=== PATIENT | female | born 1960 | race Caucasian/White ===

== ENCOUNTER → 2017-05-30 | Outpatient (REF) | payer OTHER ==
[2017-05-30 11:59] LABS: PLATELET COUNT, AUTOMATED 231 10^3/uL (150-450); RED CELL DISTRIBUTION WIDTH 12.9 % (11.5-14.5); WHITE BLOOD COUNT 5.8 10^3/uL (4.0-10.0)
[2017-05-30 12:46] LABS: ALBUMIN/GLOBULIN RATIO 1.54 (1.00-1.93); ALKALINE PHOSPHATASE 65 U/L (45-117); ALT/SGPT 31 U/L (12-78); ANION GAP 8 MEQ/L (8-16); AST/SGOT 22 U/L (7-37); BILIRUBIN,TOTAL 1.8 MG/DL (0.2-1.0); BLOOD UREA NITROGEN 18 MG/DL (7-18); CALCIUM LEVEL 9.1 MG/DL (8.5-10.1); CARBON DIOXIDE LEVEL 29 MEQ/L (21-32); CHLORIDE LEVEL 107 MEQ/L (98-107); CHOLESTEROL LEVEL 149 MG/DL (<200); CREATININE FOR GFR 0.81 MG/DL (0.55-1.02); FREE T4 1.06 NG/DL (0.76-1.46); GLOMERULAR FILTRATION RATE > 60.0 (>51); GLUCOSE, FASTING 87 MG/DL (70-105); MAGNESIUM LEVEL 1.9 MG/DL (1.8-2.4); POTASSIUM SERUM 4.2 MEQ/L (3.5-5.1); SODIUM LEVEL 144 MEQ/L (136-145); TOTAL PROTEIN 6.6 GM/DL (6.4-8.2); TRIGLYCERIDES LEVEL 87 MG/DL (<150)
== END ==
LOC: M SFHCPLAZ 09:17
PROVIDERS: ATTEND Family Medicine
DX: Z02.9 Encounter for administrative examinations, unspecified (principal); I34.9 Nonrheumatic mitral valve disorder, unspecified; I47.1 Supraventricular tachycardia; E04.1 Nontoxic single thyroid nodule

== ENCOUNTER → 2017-07-10 | Outpatient (CLI) | payer OTHER | LOC: M RAD 13:02 | DX: E04.1 Nontoxic single thyroid nodule (principal) | CPT/HCPCS: 76536 ==

== ENCOUNTER → 2018-07-03 | Outpatient (REF) | payer OTHER ==
[2018-07-03 20:13] LABS: HEMATOCRIT 44.5 % (36.0-47.0); HEMOGLOBIN 14.5 g/dl (12.0-15.5); MEAN CORPUSCULAR HEMOGLOBIN 30.7 pg (27.0-33.0); MEAN CORPUSCULAR HGB CONC 32.6 g/dl (32.0-36.5); MEAN CORPUSCULAR VOLUME 94.1 fl (80.0-96.0); PLATELET COUNT, AUTOMATED 248 10^3/uL (150-450); RED BLOOD COUNT 4.73 10^6/uL (4.00-5.40); WHITE BLOOD COUNT 7.2 10^3/uL (4.0-10.0)
[2018-07-03 20:25] LABS: BILIRUBIN,TOTAL 1.3 MG/DL (0.2-1.0); CALCIUM LEVEL 9.3 MG/DL (8.5-10.1); CHOLESTEROL RISK RATIO 2.573 (<5); CREATININE FOR GFR 1.09 MG/DL (0.55-1.30); FREE T4 0.84 NG/DL (0.76-1.46); GLOMERULAR FILTRATION RATE 54.7 (>51); MAGNESIUM LEVEL 2.2 MG/DL (1.8-2.4); POTASSIUM SERUM 4.5 MEQ/L (3.5-5.1); THYROID STIMULATING HORMONE 3.11 uIU/ML (0.358-3.740); TOTAL PROTEIN 6.8 GM/DL (6.4-8.2)
== END ==
LOC: M SFHCADAM 16:19
PROVIDERS: ATTEND Family Medicine
DX: E04.1 Nontoxic single thyroid nodule (principal); I34.9 Nonrheumatic mitral valve disorder, unspecified; I47.1 Supraventricular tachycardia

== ENCOUNTER → 2019-06-27 | Outpatient (REF) | payer OTHER ==
[~2019-06-27] MED LIST: MAG-84TA PO; SOTA80TA32 PO
[2019-06-27 13:14] LABS: HEMATOCRIT 45.1 % (36.0-47.0); HEMOGLOBIN 13.7 g/dl (12.0-15.5); MEAN CORPUSCULAR HEMOGLOBIN 28.9 pg (27.0-33.0); MEAN CORPUSCULAR HGB CONC 30.4 g/dl (32.0-36.5); MEAN CORPUSCULAR VOLUME 95.1 fl (80.0-96.0); PLATELET COUNT, AUTOMATED 228 10^3/uL (150-450); RED BLOOD COUNT 4.74 10^6/uL (4.00-5.40); WHITE BLOOD COUNT 5.1 10^3/uL (4.0-10.0)
[2019-06-27 13:21] LABS: ALBUMIN 3.6 GM/DL (3.2-5.2); ALT/SGPT 27 U/L (12-78); BILIRUBIN,TOTAL 1.8 MG/DL (0.2-1.0); BLOOD UREA NITROGEN 19 MG/DL (7-18); CARBON DIOXIDE LEVEL 28 MEQ/L (21-32); CHLORIDE LEVEL 109 MEQ/L (98-107); CHOLESTEROL LEVEL 152 MG/DL (<200); CHOLESTEROL RISK RATIO 2.338 (<5); CREATININE FOR GFR 0.96 MG/DL (0.55-1.30); FREE T4 0.87 NG/DL (0.76-1.46); GLOMERULAR FILTRATION RATE > 60.0 (>45); GLUCOSE, FASTING 84 MG/DL (70-100); HDL CHOLESTEROL 65 MG/DL (>40); LDL CHOLESTEROL 74 MG/DL (<100); NON-HDL-C 87 MG/DL; POTASSIUM SERUM 4.9 MEQ/L (3.5-5.1); SODIUM LEVEL 142 MEQ/L (136-145); TRIGLYCERIDES LEVEL 65 MG/DL (<150)
== END ==
LOC: M SFHCADAM 07:42
PROVIDERS: ATTEND Physician Assistant
DX: M25.512 Pain in left shoulder (principal); E04.1 Nontoxic single thyroid nodule; I34.9 Nonrheumatic mitral valve disorder, unspecified; Z95.810 Presence of automatic (implantable) cardiac defibrillator; I47.1 Supraventricular tachycardia

== ENCOUNTER → 2019-06-27 | Outpatient (REF) | payer OTHER ==
--- NOTE | 2019-06-28 02:07 | REP ---
Clinical: Chest and shoulder pain. Technique: PA and lateral views of the chest. Comparison: 11/05/2010. Findings: Mediastinum and cardiac silhouette stable. Evidence of prior sternotomy and pacemaker again noted. Lung champagne are clear. No focal consolidation, effusion, or pneumothorax. Skeletal structures intact. Impression: Normal stable chest x-ray. Electronically Signed by García Aguilar MD 06/28/2019 01:58 A
== END ==
LOC: M ADAMS 07:53 → EDSTATUS 07-01 11:49
PROVIDERS: ATTEND Physician Assistant
DX: M25.512 Pain in left shoulder (principal)

== ENCOUNTER 2019-06-28 12:35 | Emergency (ER) | payer OTHER ==
[~2019-06-28] VITALS: Ht 172.7 cm; Wt 71.1 kg
[2019-06-28 12:35] VITALS: BP 137/74
[2019-06-28] MEDS ORDERED: NS 500 ML IV ONE (13:00)
[2019-06-28] MEDS ORDERED: ISOVUE-370 76% 100ML VIAL (Q9967) As Ordered ONE (13:14)
[2019-06-28] MEDS ORDERED: MAG-84TA PO (13:56)
[2019-06-28] MEDS ORDERED: SOTA80TA32 PO (13:56)
--- NOTE | 2019-06-28 14:18 | REP ---
CT PULMONARY ANGIOGRAM: With IV contrast. HISTORY: Left scapular pain. Positive D-dimer. Rule out pulmonary embolus. COMPARISON STUDIES: No comparison study. CONTRAST DOSE: 75 mL of Isovue [address] TECHNIQUE: Helical scanning is acquired and overlapping 1.5 mm and contiguous 3 mm axial images are reformatted. In addition, maximum intensity projection and multiplanar re-formation images are generated in sagittal and coronal imaging projections. CT PULMONARY ANGIOGRAPHIC FINDINGS: Preliminary digital equity analyst radiograph demonstrates a multiple pacemaker in the right heart. Prior sternotomy wires are noted. There is good opacification in the pulmonary arterial tree. There is no filling defect or vessel cutoff to suggest pulmonary embolus. Thoracic aorta enhances homogeneously and is normal in course and caliber. Pacemaker leads are visible in the right ventricle and in the coronary sinus. No pleural or pericardial effusion is seen. The lung champagne are clear. No hilar or mediastinal mass or adenopathy is observed. No adrenal lesion is seen. Visualized upper abdominal structures are unremarkable. IMPRESSION: Cardiomegaly and prior sternotomy with a multilead pacemaker. No CT evidence of pulmonary embolus. No acute abnormality. Electronically Signed by Froy Berg MD 06/29/2019 05:18 A
== END 2019-06-28 13:59 | disposition home or self-care (01) ==
LOC: M ED 12:35
DX: M25.512 Pain in left shoulder (principal); I48.91 Unspecified atrial fibrillation; Z95.0 Presence of cardiac pacemaker; Z79.899 Other long term (current) drug therapy; Z88.1 Allergy status to other antibiotic agents; Z88.2 Allergy status to sulfonamides
CPT/HCPCS: 71275; 99284; Q9967

== ENCOUNTER → 2020-08-26 | Outpatient (CLI) | payer OTHER ==
--- NOTE | 2020-08-26 11:38 | REP ---
INDICATION: BREAKDOWN (MECHANICAL) OF CARDIAC ELECTRODE, INIT ENCNTR COMPARISON: 11/05/2010. TECHNIQUE: PA/Lateral FINDINGS: Lungs: Clear, no infiltrate. Heart: Normal in size. Mediastinum: Mediastinal silhouette unremarkable. Pleural angles: Unremarkable.. Bones and soft tissues: Unremarkable. The automatic internal cardiac defibrillator device is again noted with a single contiguous lead traversing across the left hemithorax into the region of the right ventricle, unchanged since the prior exam. Once again there are old leads present as seen on the prior study. A more lateral lead overlying the upper left hemithorax is unchanged. The more central lead demonstrates a new break superiorly, with a new nondisplaced wire fragment present measuring 3.8 cm in length. Sternotomy wires are noted. IMPRESSION: No acute pulmonary disease. No significant change compared to the prior study except for a new break in 1 of the old defibrillator leads in the region of the superior left hemithorax as discussed above. <Electronically signed by Cole Dexter > 08/26/20 [id number]
== END ==
LOC: M RAD 11:13
PROVIDERS: ATTEND Internal Medicine Cardiovascular Disease
DX: T82.110A Breakdown (mechanical) of cardiac electrode, initial encounter (principal)

== ENCOUNTER → 2020-11-03 | Outpatient (CLI) | payer OTHER ==
--- NOTE | 2020-11-03 11:16 | REP ---
INDICATION: LOCALIZED EDEMA- LABS FIRST. COMPARISON: None. TECHNIQUE: Multiple ultrasonographic images of the deep venous structures of the bilateral thigh were obtained from the common femoral vein to the popliteal vein along with Doppler interrogation and color flow Doppler images. FINDINGS: There is no abnormal echogenic material seen within any of the visualized deep venous structures that would suggest acute thrombosis. Coaptation is unremarkable throughout. Doppler interrogation shows an expected response to respiratory variability and augmentation. The color flow images show what appears to be a normal vascular pattern throughout. IMPRESSION: There is no ultrasonographic evidence of deep venous thrombosis involving any of the visualized deep venous structures of the bilateral thigh, as described above. <Electronically signed by Caden Prince > 11/03/20 [id number]
[2020-11-03 12:05] LABS: HEMATOCRIT 39.9 % (36.0-47.0); HEMOGLOBIN 12.2 g/dl (12.0-15.5); MEAN CORPUSCULAR HEMOGLOBIN 29.5 pg (27.0-33.0); MEAN CORPUSCULAR HGB CONC 30.6 g/dl (32.0-36.5); MEAN CORPUSCULAR VOLUME 96.6 fl (80.0-96.0); PLATELET COUNT, AUTOMATED 281 10^3/uL (150-450); RED BLOOD COUNT 4.13 10^6/uL (4.00-5.40); WHITE BLOOD COUNT 7.2 10^3/uL (4.0-10.0)
[2020-11-03 12:33] LABS: BLOOD UREA NITROGEN 14 MG/DL (7-18); CALCIUM LEVEL 9.1 MG/DL (8.8-10.2); CARBON DIOXIDE LEVEL 28 MEQ/L (21-32); CHLORIDE LEVEL 109 MEQ/L (98-107); CREATININE FOR GFR 0.79 MG/DL (0.55-1.30); GLOMERULAR FILTRATION RATE > 60.0 (>45); GLUCOSE, FASTING 91 MG/DL (70-100); NT-PRO BNP 810 PG/ML (<125); POTASSIUM SERUM 4.7 MEQ/L (3.5-5.1); SODIUM LEVEL 141 MEQ/L (136-145)
--- NOTE | 2020-11-03 12:49 | REP ---
INDICATION: SHORTNESS OF BREATH- LABS AND U/S FIRST COMPARISON: None. TECHNIQUE: PA/Lateral FINDINGS: Lungs: Clear, no infiltrate. Heart: Normal in size. Mediastinum: Mediastinal silhouette unremarkable. Pleural angles: Unremarkable.. Bones and soft tissues: Unremarkable. The automatic internal cardiac defibrillator device has been replaced, with old leads removed since the prior study. A new lead is contiguous with no discontinuity. Tip is in the region of the right ventricle. Multiple sternal wires and prosthetic heart valve are again noted. IMPRESSION: No acute pulmonary disease. Automatic internal cardiac defibrillator device and prior discontiguous leads have been removed and replaced. <Electronically signed by Cole Dexter > 11/03/20 [id number]
== END ==
LOC: M RAD 10:18
PROVIDERS: ATTEND Physician Assistant
DX: R60.0 Localized edema (principal); R06.02 Shortness of breath; Z95.810 Presence of automatic (implantable) cardiac defibrillator; Z95.2 Presence of prosthetic heart valve

== ENCOUNTER → 2020-11-03 | Outpatient (CLI) | payer OTHER ==
[2020-11-03 12:04] LABS: HEMOGLOBIN 12.3 g/dl (12.0-15.5); MEAN CORPUSCULAR HEMOGLOBIN 29.6 pg (27.0-33.0); MEAN CORPUSCULAR HGB CONC 30.8 g/dl (32.0-36.5); MEAN CORPUSCULAR VOLUME 96.4 fl (80.0-96.0); PLATELET COUNT, AUTOMATED 281 10^3/uL (150-450); RED BLOOD COUNT 4.15 10^6/uL (4.00-5.40); WHITE BLOOD COUNT 7.1 10^3/uL (4.0-10.0)
[2020-11-03 12:53] LABS: ALBUMIN 3.7 GM/DL (3.2-5.2); ALT/SGPT 90 U/L (12-78); BILIRUBIN,TOTAL 1.6 MG/DL (0.2-1.0); BLOOD UREA NITROGEN 14 MG/DL (7-18); CALCIUM LEVEL 8.4 MG/DL (8.8-10.2); CARBON DIOXIDE LEVEL 25 MEQ/L (21-32); CHLORIDE LEVEL 107 MEQ/L (98-107); CHOLESTEROL LEVEL 123 MG/DL (<200); CHOLESTEROL RISK RATIO 2.016 (<5); CREATININE FOR GFR 0.73 MG/DL (0.55-1.30); FREE T4 0.96 NG/DL (0.76-1.46); GLOMERULAR FILTRATION RATE > 60.0 (>45); GLUCOSE, FASTING 82 MG/DL (70-100); HDL CHOLESTEROL 61 MG/DL (>40); LDL CHOLESTEROL 46 MG/DL (<100); MAGNESIUM LEVEL 1.8 MG/DL (1.8-2.4); NON-HDL-C 62 MG/DL; POTASSIUM SERUM 4.6 MEQ/L (3.5-5.1); SODIUM LEVEL 140 MEQ/L (136-145); TOTAL PROTEIN 6.6 GM/DL (6.4-8.2); TRIGLYCERIDES LEVEL 78 MG/DL (<150)
== END ==
LOC: M LAB 10:21
PROVIDERS: ATTEND Family Medicine
DX: E04.1 Nontoxic single thyroid nodule (principal); G43.909 Migraine, unspecified, not intractable, without status migrainosus; I34.9 Nonrheumatic mitral valve disorder, unspecified; I47.1 Supraventricular tachycardia; E78.5 Hyperlipidemia, unspecified

== ENCOUNTER → 2020-11-13 | Outpatient (CLI) | payer OTHER ==
[2020-11-13 12:37] LABS: BLOOD UREA NITROGEN 18 MG/DL (7-18); CALCIUM LEVEL 9.2 MG/DL (8.8-10.2); CARBON DIOXIDE LEVEL 29 MEQ/L (21-32); CHLORIDE LEVEL 108 MEQ/L (98-107); CREATININE FOR GFR 0.94 MG/DL (0.55-1.30); GLOMERULAR FILTRATION RATE > 60.0 (>45); GLUCOSE, FASTING 102 MG/DL (70-100); MAGNESIUM LEVEL 2.2 MG/DL (1.8-2.4); NT-PRO BNP 695 PG/ML (<125); POTASSIUM SERUM 4.3 MEQ/L (3.5-5.1); SODIUM LEVEL 142 MEQ/L (136-145)
== END ==
LOC: M WUC 09:22
PROVIDERS: ATTEND Physician Assistant
DX: I50.9 Heart failure, unspecified (principal)

== ENCOUNTER → 2021-01-20 | Outpatient (CLI) | payer OTHER ==
[2021-01-20 11:39] LABS: BLOOD UREA NITROGEN 26 MG/DL (7-18); CALCIUM LEVEL 9.7 MG/DL (8.8-10.2); CARBON DIOXIDE LEVEL 29 MEQ/L (21-32); CHLORIDE LEVEL 105 MEQ/L (98-107); CREATININE FOR GFR 0.96 MG/DL (0.55-1.30); GLOMERULAR FILTRATION RATE > 60.0 (>45); GLUCOSE, FASTING 96 MG/DL (70-100); NT-PRO BNP 506 PG/ML (<125); POTASSIUM SERUM 4.6 MEQ/L (3.5-5.1); SODIUM LEVEL 140 MEQ/L (136-145)
== END ==
LOC: M LAB 08:18
PROVIDERS: ATTEND Physician Assistant
DX: I50.9 Heart failure, unspecified (principal)

== ENCOUNTER → 2021-01-21 | Outpatient (CLI) | payer OTHER ==
--- NOTE | 2021-01-21 17:18 | REP ---
INDICATION: NONTOXIC SINGLE THYROID NODULE. COMPARISON: The most recent prior study dated 07/10/2017. TECHNIQUE: Multiple ultrasonographic images of the thyroid. FINDINGS: The right thyroid lobe measures 4.2 x 1.3 x 1.6 cm and is normal size. The left thyroid lobe measures 4.2 x 1.3 x 1.5 cm and is normal size. The isthmus measures 2 mm thickness and is normal size. These measurements are not significantly changed from the prior study. There is a single nodule in the right thyroid lobe posteriorly in the lower pole today measuring 9 mm. This measured up to 7 mm previously. There is a single nodule in the left thyroid lobe in the upper pole today measuring 3 mm. This measured 2.6 mm previously. The remainder of the thyroid parenchyma is homogeneous bilaterally. IMPRESSION: There is a single nodule in the thyroid right lobe and a single nodule in the thyroid left lobe, not significantly changed from the comparison study. <Electronically signed by Cole Anders > 01/21/21 [id number]
== END ==
LOC: M RAD 01-20 08:14
PROVIDERS: ATTEND Family Medicine
DX: E04.1 Nontoxic single thyroid nodule (principal)

== ENCOUNTER 2021-02-22 08:28 | Emergency (ER) | payer OTHER ==
[~2021-02-22] VITALS: Ht 172.7 cm; Wt 68.2 kg
[2021-02-22] MEDS ORDERED: ESTR1DIS3 (08:57)
[2021-02-22] MEDS ORDERED: FURO20TA2 (08:57)
[2021-02-22 09:25] LABS: BASO # 0.1 10^3/uL (0.0-0.2); BASO % 0.6 % (0.0-1.0); EOS # 0.4 10^3/uL (0.0-0.5); EOS % 3.6 % (0.0-3.0); HEMATOCRIT 48.8 % (36.0-47.0); HEMOGLOBIN 15.1 g/dl (12.0-15.5); LYMPH # 1.3 10^3/uL (1.5-5.0); LYMPH % 13.6 % (24.0-44.0); MEAN CORPUSCULAR HEMOGLOBIN 27.5 pg (27.0-33.0); MEAN CORPUSCULAR HGB CONC 30.9 g/dl (32.0-36.5); MEAN CORPUSCULAR VOLUME 88.9 fl (80.0-96.0); MONO % 9.7 % (2.0-8.0); NEUTROPHILS # 7.1 10^3/uL (1.5-8.5); PLATELET COUNT, AUTOMATED 334 10^3/uL (150-450); RED BLOOD COUNT 5.49 10^6/uL (4.00-5.40); WHITE BLOOD COUNT 9.9 10^3/uL (4.0-10.0)
[2021-02-22 09:55] LABS: ALBUMIN 3.5 GM/DL (3.2-5.2); ALT/SGPT 33 U/L (12-78); BILIRUBIN,DIRECT 0.3 MG/DL (0.0-0.2); BILIRUBIN,TOTAL 1.7 MG/DL (0.2-1.0); BLOOD UREA NITROGEN 17 MG/DL (7-18); CALCIUM LEVEL 9.4 MG/DL (8.8-10.2); CARBON DIOXIDE LEVEL 31 MEQ/L (21-32); CHLORIDE LEVEL 108 MEQ/L (98-107); CK-MB VALUE MASS 1.1 NG/ML (<3.6); CPK CREATINE PHOSPHOKINASE 66 U/L (26-192); CREATININE FOR GFR 0.94 MG/DL (0.55-1.30); FREE T4 0.92 NG/DL (0.76-1.46); GLOMERULAR FILTRATION RATE > 60.0 (>45); GLUCOSE, FASTING 102 MG/DL (70-100); LIPASE 120 U/L (73-393); MAGNESIUM LEVEL 2.3 MG/DL (1.8-2.4); MB/CK RELATIVE INDEX 1.67 (< OR =4); NT-PRO BNP 3606 PG/ML (<125); POTASSIUM SERUM 4.6 MEQ/L (3.5-5.1); SODIUM LEVEL 142 MEQ/L (136-145); TOTAL PROTEIN 6.9 GM/DL (6.4-8.2); TROPONIN I < 0.02 NG/ML (< 0.10)
--- NOTE | 2021-02-22 10:06 | REP ---
INDICATION: CHEST PAIN. COMPARISON: PA and lateral chest, 11/03/2020. TECHNIQUE: Upright AP portable chest image was obtained. FINDINGS: The lungs are clear. There is no lobar consolidation or pleural effusion. There is cardiomegaly. There is a mitral valve prosthesis. There is a defibrillator cardioverter wire with a device in the anterior abdominal wall. The upper abdominal bowel gas pattern is normal. Status post median sternotomy. IMPRESSION: 1. Cardiomegaly. Status post mitral valve replacement and defibrillator cardioverter placement. 2. The lungs are clear. There is no evidence of acute cardiopulmonary pathology. 3. No significant change. <Electronically signed by Chin Reed > 02/22/21 1002
[2021-02-22 10:45] VITALS: BP 132/86
[2021-02-22] MEDS ORDERED: METO1TAB87 PO (10:59)
[2021-02-22] MEDS ORDERED: ELIQ5TAB PO ×2 (10:59→11:01)
--- NOTE | 2021-02-22 11:41 | CR ---
CONSULTATION DATE: 02/22/2021 REFERRING PHYSICIAN: Treva Dobbs M.D. INDICATION: Atrial flutter. HISTORY OF PRESENT ILLNESS: Mrs. Holloway is a 61-year-old patient of Dr. 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 She received a defibrillator that over the years has been several times replaced. She was basically doing well on chronic sotalol without any recurrence of arrhythmias in many years. Approximately a week ago she received a second dose of COVID vaccine that was complicated by fever, chills, abdominal discomfort and nausea. She initially believed this was the main reason why she was not feeling well but in the last couple of days she noted that her heart rate is around 100 beats per minute which is decidedly unusual for her, her typical heart rate is around 60 BPM. Together with overall fatigue and just malaise she decided to come to the Emergency Room for evaluation. While in the Emergency Room, her vital signs revealed a heart rate around 100 beats per minute that has been remarkably steady and the EKG revealed the presence of most likely atypical flutter with 2:1 conduction and narrow QRS complex. Dr. Damon has asked me to see the patient. Patient tells me that she feels relatively well but because her symptoms were present for at least a week she wanted to be evaluated. Besides the recent vaccination, there have not been any recent unusual events. She did have a surgical removal of her original ICD leads in September [address] [facility] in [place]. The procedure was difficult for her and complicated with fairly prolonged recovery. She was told that she was left with approximately moderate tricuspid insufficiency which could be related to the position of the current RV lead and has been taking diuretics since the procedure was performed. With this regimen, she was only mildly symptomatic and this current decompensation over the last 10 days or so is new for her. PAST MEDICAL HISTORY: 1. Cardiomyopathy as above. She had over the years several additional procedures; she reports at least two or three ablations, several ICD generator replacements. She also has a history of mitral valve repair. To the best of her understanding, her current left ventricular ejection fraction is normal. She just had an echocardiogram less than two months ago with [facility]. 2. Thyroid nodule. PAST SURGICAL HISTORY: Positive for cardiac mitral valve repair, recent thoracotomy for extraction of the old ICD leads and subsequent ICD implant. OUTPATIENT MEDICATIONS: 1. Estradiol patch. 2. Furosemide 20 mg daily. 3. Magnesium Lactate 84 mg daily. 4. Sotalol 80 mg twice a day. 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 She does not smoke. Minimal alcohol use. FAMILY HISTORY: No first degree relatives with sudden cardiac or cardiomyopathy. REVIEW OF SYSTEMS: She denies any recent ish fever or chills. She did have these symptoms approximately a week ago. She still has some indigestion type of symptoms. She has no sensation of palpitations. She has no dizziness, near/syncope, she has mild exertional dyspnea approximately [place] [employer] Class II. No chest pain. No syncope or near syncope. No ICD discharges. The rest as per HPI or otherwise negative. PHYSICAL EXAMINATION: GENERAL: Mrs. Holloway is a pleasant 61-year-old female who appears younger than her calendar age. She is alert, oriented and appropriate. VITAL SIGNS: Blood pressure 132/86, heart rate 102 beats per minute, saturation 99% on room air. Weight was recorded as 68 kg. NECK: Her JVP is not elevated. LUNGS: Clear bilaterally with good air movement. HEART: Regular tachycardia. I do not appreciate any obvious murmur or gallop. ABDOMEN: Soft, recent ICD in the upper abdomen. EXTREMITIES: Free of edema. Good peripheral pulses. NEUROLOGIC: She is intact. Chest x-ray reveals no obvious infiltrate or evidence for congestive heart failure. The heart is enlarged. There is a defibrillator in the epigastric area and appropriate single lead. LABORATORY DATA: Sodium is 142, potassium is 4.6, BUN 17, creatinine 0.9, glucose is 102, bilirubin 1.7, magnesium 2.3, normal liver function tests. Normal cardiac enzymes. N-terminal pro-BNP is 3600. Albumin 3.5. Lipase 120. TSH 4.4. CBC: Hemoglobin 15.1, hematocrit 48.8, platelet count 334,000. ASSESSMENT AND PLAN: Mrs. 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 She also had subsequent mitral valve repair and numerous defibrillator generator replacements and mostly recently in September 2020 surgical extractions of defibrillator lead and placement of the new lead. Currently, she presents with approximately 10 days of symptoms and noticing tachycardia in the last 48 hours even though it may have been present longer. I interrogated her ICD. Unfortunately, she has only single lead ICD and consequently no information about the arrhythmia is gained. The device does not register her being in abnormal rhythm. Consequently, we have to assume that it has been present longer than just the last 24 to 48 hours. She is relatively stable even though she is in 2:1 conduction, she is not overly tachycardic but it is sufficient that the loss of AV synchrony and tachycardia makes her feel worse than her baseline. There are numerous options in this setting. I would suggest that the ultimate decision about management is left to Dr. Haro who has known her for over 30 years and he will be available tomorrow. In the interim, my recommendation is to start anticoagulation and I would add a small dose of beta heidy to her Sotalol, for example metoprolol 25 mg twice a day. I offered her hospitalization but she is reluctant to stay, would prefer to go home which I think is acceptable. In the long horizon, she needs to be cardioverted through externally or by the defibrillator or by overdrive pacing. This needs to be done after BEN or possibly electively after a few weeks of anticoagulation. PHILIP
--- NOTE | 2021-02-22 16:56 | ECGEPIP ---
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
== END 2021-02-22 11:20 | disposition home or self-care (01) ==
LOC: M ED 08:28
DX: I48.92 Unspecified atrial flutter (principal); I25.10 Atherosclerotic heart disease of native coronary artery without angina pectoris; I42.9 Cardiomyopathy, unspecified; E07.9 Disorder of thyroid, unspecified; Z88.1 Allergy status to other antibiotic agents; Z88.2 Allergy status to sulfonamides; Z79.899 Other long term (current) drug therapy; Z79.01 Long term (current) use of anticoagulants

== ENCOUNTER → 2021-04-30 | Outpatient (CLI) | payer BC ==
[~2021-04-30] MED LIST changes: +ELIQ5TAB PO; +ESTR1DIS3; +FURO20TA2; +METO1TAB87 PO
--- NOTE | 2021-04-30 10:46 | REP ---
INDICATION: DORSALGIA. COMPARISON: 02/22/2021 TECHNIQUE: PA and lateral FINDINGS: The cardiomediastinal silhouette is unchanged. Note is again made of previous median sternotomy. The pacemaker lead is unchanged. Mild left basilar opacities have developed since the last exam. There is minimal left CP angle blunting also representing a change. Lung champagne are otherwise clear and stable. There is no change in the osseous structures. IMPRESSION: New mild left basilar opacities and CP angle blunting. Subsegmental atelectasis versus possible early pneumonia. This should be correlated clinically with appropriate follow-up. <Electronically signed by Caden Prince > 04/30/21 [id number]
--- NOTE | 2021-04-30 10:48 | REP ---
INDICATION: DORSALGIA. COMPARISON: None. TECHNIQUE: AP and lateral views FINDINGS: There is scattered bilateral marginal osteophytosis. Vertebral body height and alignment is within normal limits. There is mild anterior lipping at every level. The disc spaces appear well maintained. The pedicles are intact bilaterally. IMPRESSION: Chronic changes as described above. <Electronically signed by Caden Prince > 04/30/21 [id number]
== END ==
LOC: M WUC 09:53
PROVIDERS: ATTEND Nurse Practitioner Family
DX: M54.9 Dorsalgia, unspecified (principal); M25.78 Osteophyte, vertebrae

== ENCOUNTER → 2021-04-30 | Outpatient (CLI) | payer BC ==
[2021-04-30 11:36] LABS: HEMATOCRIT 47.6 % (36.0-47.0); MEAN CORPUSCULAR HEMOGLOBIN 29.2 pg (27.0-33.0); MEAN CORPUSCULAR HGB CONC 31.5 g/dl (32.0-36.5); MEAN CORPUSCULAR VOLUME 92.8 fl (80.0-96.0); PLATELET COUNT, AUTOMATED 303 10^3/uL (150-450); RED BLOOD COUNT 5.13 10^6/uL (4.00-5.40)
[2021-04-30 12:14] LABS: BLOOD UREA NITROGEN 19 MG/DL (7-18); CALCIUM LEVEL 9.6 MG/DL (8.8-10.2); CARBON DIOXIDE LEVEL 30 MEQ/L (21-32); CHLORIDE LEVEL 105 MEQ/L (98-107); CREATININE FOR GFR 0.95 MG/DL (0.55-1.30); GLOMERULAR FILTRATION RATE > 60.0 (>45); GLUCOSE, FASTING 97 MG/DL (70-100); MAGNESIUM LEVEL 2.2 MG/DL (1.8-2.4); POTASSIUM SERUM 4.4 MEQ/L (3.5-5.1); SODIUM LEVEL 141 MEQ/L (136-145)
== END ==
LOC: M WUC 09:56
PROVIDERS: ATTEND Physician Assistant
DX: I48.3 Typical atrial flutter (principal)

== ENCOUNTER → 2021-06-18 | Outpatient (REF) | LOC: M LABSMTC 11:38 | PROVIDERS: ATTEND Family Medicine | DX: Z11.52 Encounter for screening for COVID-19 (principal); Z20.822 Contact with and (suspected) exposure to COVID-19 ==

== ENCOUNTER → 2021-12-06 | Outpatient (CLI) | payer BC ==
[2021-12-06 10:55] LABS: BLOOD UREA NITROGEN 21 MG/DL (7-18); CALCIUM LEVEL 9.5 MG/DL (8.8-10.2); CARBON DIOXIDE LEVEL 31 MEQ/L (21-32); CHLORIDE LEVEL 105 MEQ/L (98-107); CREATININE FOR GFR 0.93 MG/DL (0.55-1.30); GLOMERULAR FILTRATION RATE > 60.0 (>45); GLUCOSE, FASTING 83 MG/DL (70-100); MAGNESIUM LEVEL 2.3 MG/DL (1.8-2.4); NT-PRO BNP 372 PG/ML (<125); POTASSIUM SERUM 4.4 MEQ/L (3.5-5.1); SODIUM LEVEL 141 MEQ/L (136-145)
== END ==
LOC: M LAB 09:39
PROVIDERS: ATTEND Physician Assistant
DX: I50.32 Chronic diastolic (congestive) heart failure (principal); I48.3 Typical atrial flutter; I49.01 Ventricular fibrillation

== ENCOUNTER → 2022-05-26 | Outpatient (REF) ==
[2022-05-26 11:24] LABS: RSV AMPLIFICATION NEGATIVE (NEGATIVE)
== END ==
LOC: M LABSMTC 10:27
PROVIDERS: ATTEND Family Medicine
DX: Z20.822 Contact with and (suspected) exposure to COVID-19 (principal)

== ENCOUNTER → 2022-11-24 | Outpatient (REF) | payer BC | LOC: M SFHCADAM 09:07 | PROVIDERS: ATTEND Family Medicine | DX: I34.9 Nonrheumatic mitral valve disorder, unspecified (principal); G43.909 Migraine, unspecified, not intractable, without status migrainosus; I47.1 Supraventricular tachycardia; E04.1 Nontoxic single thyroid nodule; E78.5 Hyperlipidemia, unspecified; R53.83 Other fatigue ==

== ENCOUNTER → 2022-11-29 | Outpatient (CLI) | payer BC ==
[2022-11-29 14:56] LABS: HEMATOCRIT 45.9 % (36.0-47.0); HEMOGLOBIN 14.4 g/dl (12.0-15.5); MEAN CORPUSCULAR HEMOGLOBIN 29.9 pg (27.0-33.0); MEAN CORPUSCULAR HGB CONC 31.4 g/dl (32.0-36.5); MEAN CORPUSCULAR VOLUME 95.4 fl (80.0-96.0); PLATELET COUNT, AUTOMATED 217 10^3/uL (150-450); RED BLOOD COUNT 4.81 10^6/uL (4.00-5.40)
[2022-11-29 15:38] LABS: ALBUMIN 3.9 G/DL (3.2-5.2); ALKALINE PHOSPHATASE 78 U/L (46-116); ALT/SGPT 34 U/L (7.0-40); AST/SGOT 27 U/L (<34); BILIRUBIN,TOTAL 2.5 MG/DL (0.3-1.2); BLOOD UREA NITROGEN 25 MG/DL (9-23); CALCIUM LEVEL 9.6 MG/DL (8.3-10.6); CARBON DIOXIDE LEVEL 29 MMOL/L (20-31); CHLORIDE LEVEL 106 MMOL/L (98-107); CHOLESTEROL LEVEL 131 MG/DL (<200); CHOLESTEROL RISK RATIO 2.22 (<5); CREATININE FOR GFR 0.93 MG/DL (0.55-1.30); FREE T4 1.02 NG/DL (0.89-1.76); GLOMERULAR FILTRATION RATE > 60.0 (>45); GLUCOSE, FASTING 80 MG/DL (74-106); HDL CHOLESTEROL 58.9 MG/DL (>40); LDL CHOLESTEROL 56.1 MG/DL (<100); MAGNESIUM LEVEL 1.9 MG/DL (1.8-2.4); NON-HDL-C 72.1 MG/DL; POTASSIUM SERUM 4.2 MMOL/L (3.5-5.1); SODIUM LEVEL 142 MMOL/L (136-145); THYROID STIMULATING HORMONE 3.893 uIU/ML (0.55-4.78); TOTAL PROTEIN 6.4 G/DL (5.7-8.2); TRIGLYCERIDES LEVEL 80 MG/DL (<150)
[2022-11-29 15:55] LABS: HEMOGLOBIN A1c 5.5 % (4.0-6.0)
== END ==
LOC: M LAB 13:57
PROVIDERS: ATTEND Family Medicine
DX: I34.9 Nonrheumatic mitral valve disorder, unspecified (principal); G43.909 Migraine, unspecified, not intractable, without status migrainosus; I47.1 Supraventricular tachycardia; E04.1 Nontoxic single thyroid nodule; E78.5 Hyperlipidemia, unspecified; R53.83 Other fatigue

== ENCOUNTER 2023-02-11 18:58 | Emergency (ER) | payer BC, SELFPAY ==
[~2023-02-11] VITALS: Ht 172.7 cm; Wt 72.9 kg
[2023-02-11] MEDS ORDERED: LIDOCAINE W/EPINEPHRINE 1% 20ML VIAL SC ONE (19:25)
[2023-02-11] MEDS ORDERED: BOOSTRIX VACCINE (TETANUS/DIPHTH/ACEL. PERTUSSIS) 0.5ML SYR IM ONE (19:25)
[2023-02-11] MEDS ORDERED: LIDOCAINE 1% MDV 20ML VIAL SC ONE (19:40)
[2023-02-11 20:34] VITALS: BP 164/68; TEMP 96.1; O2SAT 98
== END 2023-02-11 20:35 | disposition home or self-care (01) ==
LOC: M ED 18:58
DX: S61.412A Laceration without foreign body of left hand, initial encounter (principal); W26.8XXA Contact with other sharp object(s), not elsewhere classified, initial encounter; Y92.009 Unspecified place in unspecified non-institutional (private) residence as the place of occurrence of the external cause; Y93.89 Activity, other specified; Y99.8 Other external cause status; I50.20 Unspecified systolic (congestive) heart failure; Z88.2 Allergy status to sulfonamides; Z79.01 Long term (current) use of anticoagulants; Z79.899 Other long term (current) drug therapy; Z95.0 Presence of cardiac pacemaker

== ENCOUNTER → 2023-04-13 | Outpatient (CLI) | payer BC | LOC: M SLEEP HO 10:48 | PROVIDERS: ATTEND Physician Assistant | DX: I27.29 Other secondary pulmonary hypertension (principal); R06.83 Snoring ==

== ENCOUNTER → 2023-08-16 | Outpatient (CLI) | payer BC ==
[2023-08-16 11:23] LABS: FREE T4 0.9 NG/DL (0.89-1.76); THYROID STIMULATING HORMONE 6.213 uIU/ML (0.55-4.78)
== END ==
LOC: M LAB 10:21
PROVIDERS: ATTEND Nurse Practitioner Adult Health
DX: I07.1 Rheumatic tricuspid insufficiency (principal)

== ENCOUNTER → 2023-08-25 | Outpatient (CLI) | payer BC ==
[2023-08-25 11:15] LABS: HEMATOCRIT 47.1 % (36.0-47.0); HEMOGLOBIN 15.1 g/dl (12.0-15.5); MEAN CORPUSCULAR HEMOGLOBIN 30.1 pg (27.0-33.0); MEAN CORPUSCULAR HGB CONC 32.1 g/dl (32.0-36.5); MEAN CORPUSCULAR VOLUME 93.8 fl (80.0-96.0); PLATELET COUNT, AUTOMATED 242 10^3/uL (150-450); RED BLOOD COUNT 5.02 10^6/uL (4.00-5.40); WHITE BLOOD COUNT 7.8 10^3/uL (4.0-10.0)
[2023-08-25 11:28] LABS: INR 1.2; PARTIAL THROMBOPLASTIN TIME 25.8 SECONDS (24.8-34.2); PROTHROMBIN TIME 14.9 SECONDS (12.5-14.5)
[2023-08-25 11:44] LABS: CALCIUM LEVEL 9.3 MG/DL (8.3-10.6); CREATININE FOR GFR 1.03 MG/DL (0.55-1.30); GLOMERULAR FILTRATION RATE 57.4 (>45); POTASSIUM SERUM 4.5 MMOL/L (3.5-5.1)
== END ==
LOC: M LAB 10:42
PROVIDERS: ATTEND Physician Assistant
DX: I36.1 Nonrheumatic tricuspid (valve) insufficiency (principal)

== ENCOUNTER → 2024-04-17 | Outpatient (CLI) | payer MEDICARE ==
[2024-04-17 16:33] LABS: ALBUMIN 3.7 G/DL (3.2-5.2); ALKALINE PHOSPHATASE 76 U/L (35-104); ALT/SGPT 19 U/L (7.0-40); AST/SGOT 19 U/L (<34); BILIRUBIN,DIRECT 0.7 MG/DL (<0.4); BILIRUBIN,TOTAL 2.1 MG/DL (0.3-1.2); BLOOD UREA NITROGEN 21 MG/DL (9-23); CALCIUM LEVEL 9.9 MG/DL (8.3-10.6); CARBON DIOXIDE LEVEL 32 MMOL/L (20-31); CHLORIDE LEVEL 110 MMOL/L (98-107); CREATININE FOR GFR 0.96 MG/DL (0.55-1.30); GLOMERULAR FILTRATION RATE > 60.0 (>45); GLUCOSE, FASTING 90 MG/DL (74-106); INR 1.12; PARTIAL THROMBOPLASTIN TIME 28.9 SECONDS (24.8-34.2); POTASSIUM SERUM 4.3 MMOL/L (3.5-5.1); PROTHROMBIN TIME 14.7 SECONDS (12.5-14.5); SODIUM LEVEL 143 MMOL/L (136-145); TOTAL PROTEIN 6.4 G/DL (5.7-8.2)
[2024-04-17 16:43] LABS: BASO % 0.6 % (0.0-1.0); EOS # 0.1 10^3/uL (0.0-0.5); EOS % 1.5 % (0.0-3.0); HEMATOCRIT 44.9 % (36.0-47.0); HEMOGLOBIN 13.9 g/dl (12.0-15.5); LYMPH # 1.1 10^3/uL (1.5-5.0); LYMPH % 16.8 % (24.0-44.0); MEAN CORPUSCULAR HEMOGLOBIN 29.1 pg (27.0-33.0); MEAN CORPUSCULAR VOLUME 93.9 fl (80.0-96.0); MONO # 0.7 10^3/uL (0.0-0.8); MONO % 10.8 % (2.0-8.0); NEUTROPHILS # 4.5 10^3/uL (1.5-8.5); PLATELET COUNT, AUTOMATED 216 10^3/uL (150-450); RED BLOOD COUNT 4.78 10^6/uL (4.00-5.40); WHITE BLOOD COUNT 6.5 10^3/uL (4.0-10.0)
== END ==
LOC: M WUC 11:46
PROVIDERS: ATTEND Nurse Practitioner Family
DX: I50.9 Heart failure, unspecified (principal)

== ENCOUNTER → 2024-06-03 | Outpatient (CLI) | payer MEDICARE | LOC: M CARPUL 15:40 | PROVIDERS: ATTEND Physician Assistant | DX: I36.1 Nonrheumatic tricuspid (valve) insufficiency (principal); I50.32 Chronic diastolic (congestive) heart failure ==

== ENCOUNTER → 2024-06-08 | Outpatient (CLI) | payer MEDICARE ==
[2024-06-08 10:24] LABS: BASO % 0.5 % (0.0-1.0); EOS # 0.1 10^3/uL (0.0-0.5); EOS % 1.5 % (0.0-3.0); HEMOGLOBIN 14.7 g/dl (12.0-15.5); LYMPH % 15.5 % (24.0-44.0); MEAN CORPUSCULAR HEMOGLOBIN 29.3 pg (27.0-33.0); MEAN CORPUSCULAR HGB CONC 31.3 g/dl (32.0-36.5); MEAN CORPUSCULAR VOLUME 93.6 fl (80.0-96.0); MONO # 0.7 10^3/uL (0.0-0.8); MONO % 9.9 % (2.0-8.0); NEUTROPHILS # 4.8 10^3/uL (1.5-8.5); NEUTROPHILS % 72.3 % (36.0-66.0); PLATELET COUNT, AUTOMATED 224 10^3/uL (150-450); RED BLOOD COUNT 5.02 10^6/uL (4.00-5.40); WHITE BLOOD COUNT 6.7 10^3/uL (4.0-10.0)
[2024-06-08 10:41] LABS: ALBUMIN 3.7 G/DL (3.2-5.2); ALKALINE PHOSPHATASE 113 U/L (35-104); ALT/SGPT 25 U/L (7.0-40); AST/SGOT 24 U/L (<34); BILIRUBIN,TOTAL 1.5 MG/DL (0.3-1.2); BLOOD UREA NITROGEN 23 MG/DL (9-23); CALCIUM LEVEL 9.7 MG/DL (8.3-10.6); CARBON DIOXIDE LEVEL 30 MMOL/L (20-31); CHLORIDE LEVEL 108 MMOL/L (98-107); CREATININE FOR GFR 0.92 MG/DL (0.55-1.30); GLOMERULAR FILTRATION RATE > 60.0 (>45); GLUCOSE, FASTING 98 MG/DL (74-106); POTASSIUM SERUM 4.6 MMOL/L (3.5-5.1); SODIUM LEVEL 145 MMOL/L (136-145); TOTAL PROTEIN 6.8 G/DL (5.7-8.2)
== END ==
LOC: M LAB 09:41
PROVIDERS: ATTEND Nurse Practitioner Family
DX: Z95.4 Presence of other heart-valve replacement (principal); I50.32 Chronic diastolic (congestive) heart failure; Z79.899 Other long term (current) drug therapy

== ENCOUNTER → 2024-06-08 | Outpatient (CLI) | payer MEDICARE ==
[2024-06-08 10:23] LABS: HEMATOCRIT 46.3 % (36.0-47.0); HEMOGLOBIN 14.7 g/dl (12.0-15.5); MEAN CORPUSCULAR HEMOGLOBIN 29.5 pg (27.0-33.0); MEAN CORPUSCULAR HGB CONC 31.7 g/dl (32.0-36.5); PLATELET COUNT, AUTOMATED 216 10^3/uL (150-450); RED BLOOD COUNT 4.98 10^6/uL (4.00-5.40); WHITE BLOOD COUNT 6.6 10^3/uL (4.0-10.0)
[2024-06-08 10:41] LABS: BLOOD UREA NITROGEN 22 MG/DL (9-23); CALCIUM LEVEL 9.5 MG/DL (8.3-10.6); CARBON DIOXIDE LEVEL 31 MMOL/L (20-31); CHLORIDE LEVEL 108 MMOL/L (98-107); CREATININE FOR GFR 0.91 MG/DL (0.55-1.30); GLOMERULAR FILTRATION RATE > 60.0 (>45); GLUCOSE, FASTING 98 MG/DL (74-106); POTASSIUM SERUM 4.8 MMOL/L (3.5-5.1); SODIUM LEVEL 145 MMOL/L (136-145)
== END ==
LOC: M LAB 09:43
PROVIDERS: ATTEND Physician Assistant
DX: I50.32 Chronic diastolic (congestive) heart failure (principal)

== ENCOUNTER 2024-06-22 07:05 | Emergency (ER) | payer MEDICARE ==
[~2024-06-22] VITALS: Ht 172.7 cm; Wt 68.0 kg
[2024-06-22 07:22] VITALS: TEMP 95.1
[2024-06-22 08:15] LABS: BASO # 0.1 10^3/uL (0.0-0.2); BASO % 0.6 % (0.0-1.0); EOS # 0.2 10^3/uL (0.0-0.5); HEMATOCRIT 46.4 % (36.0-47.0); HEMOGLOBIN 14.5 g/dl (12.0-15.5); LYMPH % 12.8 % (24.0-44.0); MEAN CORPUSCULAR HEMOGLOBIN 29.4 pg (27.0-33.0); MEAN CORPUSCULAR HGB CONC 31.3 g/dl (32.0-36.5); MEAN CORPUSCULAR VOLUME 93.9 fl (80.0-96.0); MONO # 0.8 10^3/uL (0.0-0.8); MONO % 10.5 % (2.0-8.0); NEUTROPHILS # 5.8 10^3/uL (1.5-8.5); NEUTROPHILS % 73.7 % (36.0-66.0); PLATELET COUNT, AUTOMATED 262 10^3/uL (150-450); RED BLOOD COUNT 4.94 10^6/uL (4.00-5.40); WHITE BLOOD COUNT 7.9 10^3/uL (4.0-10.0)
[2024-06-22] MEDS ORDERED: AMOXTAB PO (09:36)
[2024-06-22 09:45] VITALS: BP 129/63
[2024-06-22 09:50] VITALS: O2SAT 98
== END 2024-06-22 09:58 | disposition home or self-care (01) ==
LOC: M ED 07:05
DX: J01.90 Acute sinusitis, unspecified (principal); Z79.899 Other long term (current) drug therapy; Z88.2 Allergy status to sulfonamides

== ENCOUNTER → 2025-06-06 | Outpatient (CLI) | payer MEDICARE ==
[~2025-06-06] MED LIST changes: +AMOXTAB PO
[2025-06-06 13:26] LABS: PLATELET COUNT, AUTOMATED 228 10^3/uL (150-450)
[2025-06-06 13:45] LABS: ALT/SGPT 21.0 U/L (7.0-40); AST/SGOT 25.0 U/L (<34); CALCIUM LEVEL 9.0 MG/DL (8.3-10.6); CARBON DIOXIDE LEVEL 28.0 MMOL/L (20-31); CHLORIDE LEVEL 106.0 MMOL/L (98-107); CHOLESTEROL LEVEL 179.0 MG/DL (<200); CHOLESTEROL RISK RATIO 2.87 (<5); CREATININE FOR GFR 0.9 MG/DL (0.55-1.30); GLOMERULAR FILTRATION RATE 70.5 (>45); LDL CHOLESTEROL 101.0 MG/DL (<100); MAGNESIUM LEVEL 1.8 MG/DL (1.8-2.4); NON-HDL-C 116.8 MG/DL; POTASSIUM SERUM 4.7 MMOL/L (3.5-5.1); SODIUM LEVEL 144.0 MMOL/L (136-145); TRIGLYCERIDES LEVEL 79.0 MG/DL (<150)
== END ==
LOC: M WUC 10:24
PROVIDERS: ATTEND Physician Assistant
DX: I48.3 Typical atrial flutter (principal); I50.32 Chronic diastolic (congestive) heart failure; Z13.220 Encounter for screening for lipoid disorders